=== PATIENT | male | born 1975 | race Caucasian/White ===

== ENCOUNTER 2017-06-18 10:40 | Inpatient (IN) | payer MEDICAID ==
--- NOTE | 2017-06-18 11:32 | EDPHY ---
H & P Stated Complaint: RIGHT FLANK PAIN Time Seen by Provider: 06/18/17 11:32 HPI/ROS: HPI: This is a 41-year-old male who presents with Chief Complaint: Right flank pain Location: Right flank/right lower quadrant Quality: Pain Duration: Starting this morning Signs and Symptoms: no fever, + nausea, no vomiting, no hematemesis, no blood in stool, no abdominal bloating, no diarrhea, no back pain, no urinary symptoms , no testicular/groin pain, no indigestion, no chest pain, no shortness of breath Timing: Acute Severity: 8 out of Context: Patient reports that he woke up this morning with right flank to right lower quadrant pain. Into the coffee shop and was talking to his friends he became concerned he may have a kidney stone or appendicitis. He reports mild nausea but no vomiting/fever/diarrhea/testicular groin pain. Drank coffee and ate hummus around 8:30 a.m. Denies any hematuria or history of kidney stones. Modifying Factors: He has tried nothing for the pain Comment: ROS: see HPI Constitutional: No fever, no chills, no weight loss Eyes: No blurred vision Respiratory: No shortness of breath, no cough Cardiovascular: No chest pain, no palpitations Gastrointestinal: + nausea, no vomiting, no diarrhea, no hematemesis, no blood in stool Genitourinary: No dysuria, no blood in urine Extremities: No myalgias, no edema Neurologic: No weakness, no numbness Skin: No rashes, no petechiae Hematologic: No bruising, no bleeding MEDICAL/SURGICAL/SOCIAL HISTORY: Medical history: Generally healthy. Does not take any regular medications. Surgical history: Knee arthroscopy Social history: Nonsmoker. . Owns a [employer] business. Family history noncontributory. CONSTITUTIONAL: awake and alert, no obvious distress HEENT: Atraumatic and normocephalic, PERRL, EOMI. Nares patent; no rhinorrhea; no nasal mucosal edema. Tympanic membranes clear. Hard of hearing. Oropharynx clear, no exudate and moist pink mucosa. Airway patent. No lymphadenopathy. No meningismus. Cardiovascular: Normal S1/S2, regular rate, regular rhythm, without murmur rub or gallop. PULMONARY/CHEST: Symmetrical and nontender. Clear to auscultation bilaterally. Good air movement. No accessory muscle usage. ABDOMEN: Soft, nondistended, right lower quadrant moderate tenderness, no rebound, + guarding, no peritoneal signs, no masses or organomegaly. No CVAT. EXTREMITIES: 2/2 pulses, strength 5/5, no deformities, no clubbing, no cyanosis or edema. NEUROLOGICAL: no focal neuro deficits. GCS 15. SKIN: Warm and dry, no erythema. no rash. Good capillary refill. Source: Patient Exam Limitations: No limitations - Personal History Current Tetanus/Diphtheria Vaccine: Yes Current Tetanus Diphtheria and Acellular Pertussis (TDAP): Yes Tetanus Vaccine Date: < 10 years - Medical/Surgical History Hx Asthma: No Hx Chronic Respiratory Disease: No Hx Diabetes: No Hx Cardiac Disease: No Hx Renal Disease: No Hx Cirrhosis: No Hx Alcoholism: No Hx HIV/AIDS: No Hx Splenectomy or Spleen Trauma: No Other PMH: Hard of hearing, right knee surgery - Social History Smoking Status: Never smoked Constitutional: Initial Vital Signs Temperature (C) 37.7 C 06/18/17 10:59 Heart Rate 78 06/18/17 10:59 Respiratory Rate 16 06/18/17 10:59 Blood Pressure 135/83 H 06/18/17 10:59 O2 Sat (%) 98 06/18/17 10:59 O2 Delivery Mode Room Air Allergies/Adverse Reactions: No Known Allergies Allergy (Unverified 07/13/09 13:51) Home Medications: Medication Instructions Recorded NK [No Known Home Meds] 06/18/17 Medical Decision Making - Diagnostics Imaging Results: Imaging Impressions Abdomen/Pelvis CT 06/18/17 11:46 Impression: CT findings of appendicitis. Marked surrounding inflammatory change and free fluid suggests it may be ruptured. No evidence for free intraperitoneal air. Results called and discussed with Yamini Farah PA-C on June 18, 2017 at 1223 hours. Attention: This CT examination is specifically designed to evaluate patients who are clinically suspected of having acute obstructive uropathy. This examination does not use radiographic contrast, and as such, provides only a limited evaluation of the abdomen, pelvis and retroperitoneum. If there is further clinical suspicion for pathological conditions other than obstructive uropathy, a complete CT evaluation of the abdomen and pelvis utilizing intravenous, oral, and rectal contrast should be considered. ED Course/Re-evaluation: Urinalysis, labs, IV fluids, IV medications, CT abdomen and pelvis scan ordered Given 2 L normal saline IV Zofran, IV Toradol 30 mg, IV Dilaudid 1215: Called by radiologist, Dr. Rosenberg, reported that patient has acute appendicitis with perforation. Appendix is measuring 15 mm and has free air and inflammatory changes. Labs reviewed; mild leukocytosis with left shift noted. Given patient IV ceftriaxone and Flagyl. NPO status. Last meal was 8:30 a.m. Approximately 4 hr ago. 1225: ED decision to consult General surgery. Spoke with Dr. Avila, who came to the emergency room and reviewed films via PACs. He kindly agrees to consult on patient and take to the OR. This patient was seen under the supervision of my secondary supervising physician. I evaluated care for this patient independently. Discussed this patient with Dr. Gaspar who did not see the patient. Differential Diagnosis: Flank pain including but not limited to musculoskeletal causes, kidney stone, pyelonephritis, shingles, and intra-abdominal causes such as diverticulitis and appendicitis. - Data Points Laboratory Results: Laboratory Results 06/18/17 11:39 06/18/17 11:39 06/18/17 06/18/17 06/18/17 11:39 11:39 11:39 WBC 11.20 10^3/uL H 10^3/uL (3.80-9.50) RBC 5.45 10^6/uL 10^6/uL (4.40-6.38) Hgb 16.3 g/dL g/dL (13.7-17.5) Hct 46.2 % % (40.0-51.0) MCV 84.8 fL fL (81.5-99.8) MCH 29.9 pg pg (27.9-34.1) MCHC 35.3 g/dL g/dL (32.4-36.7) RDW 11.9 % % (11.5-15.2) Plt Count 282 10^3/uL 10^3/uL (150-400) MPV 9.4 fL fL (8.7-11.7) Neut % (Auto) 79.3 % H % (39.3-74.2) Lymph % (Auto) 12.5 % L % (15.0-45.0) [place] % (Auto) 7.1 % % (4.5-13.0) Eos % (Auto) 0.3 % L % (0.6-7.6) Baso % (Auto) 0.4 % % (0.3-1.7) Nucleat RBC Rel Count 0.0 % % (0.0-0.2) Absolute Neuts (auto) 8.90 10^3/uL H 10^3/uL (1.70-6.50) Absolute Lymphs (auto) 1.40 10^3/uL 10^3/uL (1.00-3.00) Absolute Monos (auto) 0.79 10^3/uL 10^3/uL (0.30-0.80) Absolute Eos (auto) 0.03 10^3/uL 10^3/uL (0.03-0.40) Absolute Basos (auto) 0.04 10^3/uL 10^3/uL (0.02-0.10) Absolute Nucleated RBC 0.00 10^3/uL 10^3/uL (0-0.01) Immature Gran % 0.4 % % (0.0-1.1) Immature Gran # 0.04 10^3/uL 10^3/uL (0.00-0.10) Sodium 139 mEq/L mEq/L (135-145) Potassium 4.2 mEq/L mEq/L (3.5-5.2) Chloride 103 mEq/L mEq/L (97-110) Carbon Dioxide 22 mEq/l mEq/l (22-31) Anion Gap 14 mEq/L mEq/L (8-16) BUN 21 mg/dL mg/dL (7-23) Creatinine 0.8 mg/dL mg/dL (0.7-1.3) Estimated GFR > 60 Glucose 105 mg/dL H mg/dL (70-100) Calcium 9.7 mg/dL mg/dL (8.5-10.4) Total Bilirubin 0.8 mg/dL mg/dL (0.1-1.4) Conjugated Bilirubin 0.5 mg/dL mg/dL (0.0-0.5) Unconjugated Bilirubin 0.3 mg/dL mg/dL (0.0-1.1) AST 26 IU/L IU/L (17-59) ALT 55 IU/L IU/L (21-72) Alkaline Phosphatase 68 IU/L IU/L (38-126) Total Protein 7.7 g/dL g/dL (6.3-8.2) Albumin 4.6 g/dL g/dL (3.5-5.0) Lipase 64 IU/L IU/L (23-300) Urine Color YELLOW Urine Appearance CLEAR Urine pH 5.0 (5.0-7.5) Ur Specific [place] 1.023 (1.002-1.030) Urine Protein NEGATIVE (NEGATIVE) Urine Ketones NEGATIVE (NEGATIVE) Urine Blood NEGATIVE (NEGATIVE) Urine Nitrate NEGATIVE (NEGATIVE) Urine Bilirubin NEGATIVE (NEGATIVE) Urine Urobilinogen NEGATIVE EU EU (0.2-1.0) Ur Leukocyte Esterase NEGATIVE (NEGATIVE) Urine Glucose NEGATIVE (NEGATIVE) Medications Given: Sodium Chloride (Ns) 1,000 mls @ 0 mls/hr IV ONCE ONE; Wide Open PRN Reason: Protocol Stop: 06/18/17 13:50 Last Admin: 06/18/17 13:51 Dose: 1,000 mls Discontinued Medications Hydromorphone HCl (Dilaudid) 1 mg IVP EDNOW ONE Stop: 06/18/17 12:25 Last Admin: 06/18/17 12:49 Dose: 1 mg Sodium Chloride (Ns) 1,000 mls @ 0 mls/hr IV ONCE ONE; Wide Open PRN Reason: Protocol Stop: 06/18/17 11:47 Last Admin: 06/18/17 11:57 Dose: 1,000 mls Ceftriaxone Sodium 2 gm/ (Sterile Water) 20 mls @ 300 mls/hr IV EDNOW ONE PRN Reason: Protocol Stop: 06/18/17 12:26 Last Admin: 06/18/17 13:22 Dose: 20 mls Metronidazole/Sodium Chloride (Flagyl 500 Mg (Premix)) 100 mls @ 100 mls/hr IV EDNOW ONE PRN Reason: Protocol Stop: 06/18/17 13:22 Last Admin: 06/18/17 12:50 Dose: 100 mls Ketorolac Tromethamine (Toradol) 30 mg IVP EDNOW ONE Stop: 06/18/17 11:47 Last Admin: 06/18/17 11:56 Dose: 30 mg Ondansetron HCl (Zofran) 4 mg IVP EDNOW ONE Stop: 06/18/17 13:50 Last Admin: 06/18/17 13:50 Dose: 4 mg Departure - Departure Disposition: [facility] Acute Clinical Impression: Appendicitis, acute, with peritonitis Condition: Fair
[2017-06-18] MEDS ORDERED: NS 1,000 ML IV ONE ×3 (11:46→13:53)
[2017-06-18] MEDS ORDERED: KETOROLAC 30 MG/1 ML SDV IVP ONE (11:46)
[2017-06-18 11:51] LABS: PLATELET COUNT 282 10^3/uL (150-400)
[2017-06-18] MEDS ORDERED: cefTRIAXone 2 GM in STERILE WATER INJ 20 ML IV ONE (12:23)
[2017-06-18] MEDS ORDERED: HYDROmorphONE/DILAUDID 2 MG/ML INJ IVP ONE (12:24)
--- NOTE | 2017-06-18 12:51 | PDGENHP ---
History and Physical History and Physical: h and p cc: rlq pain. 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 access: appendicitis plan: appendctomy, laparoscopic or open.
[2017-06-18] MEDS ORDERED: ONDANSETRON 4 MG/2 ML VIAL ONE (13:47)
[2017-06-18] MEDS ORDERED: ONDANSETRON 4 MG/2 ML VIAL IVP ONE ×2 (13:49→13:53)
[2017-06-18] MEDS ORDERED: MIDAZOLAM 2 MG/2 ML VIAL IVP ONE (14:52)
--- NOTE | 2017-06-18 14:52 | PDANEPAE ---
ANE History of Present Illness 41 yo for lap appy MARCIAL Past Medical History - Cardiovascular History Hx Hypertension: No Hx Arrhythmias: No Hx Chest Pain: No Hx Coronary Artery / Peripheral Vascular Disease: No Hx CHF / Valvular Disease: No Hx Palpitations: No - Pulmonary History Hx COPD: No Hx Asthma/Reactive Airway Disease: No Hx Oxygen in Use at Home: No Hx Sleep Apnea: No - Endocrine History Hx Diabetes: No ANE Review of Systems Review of Systems: - Exercise capacity METS (RN): 5 METS ANE Patient History - Allergies Allergies/Adverse Reactions: No Known Allergies Allergy (Unverified 07/13/09 13:51) - Home Medications Home medications: home medication list seen and reviewed Home Medications: NK [No Known Home Meds] 06/18/17 [Last Taken Unknown] - NPO status NPO Since - Liquids (Date): 06/18/17 NPO Since - Liquids (Time): 08:00 NPO Since - Solids (Date): 06/18/17 NPO Since - Solids (Time): 08:00 - Anes Hx Anes Hx: no prior problems - Smoking Hx Smoking Status: Never smoked ANE Labs/Vital Signs - Labs Result Diagrams: 06/18/17 11:39 06/18/17 11:39 - Vital Signs Blood Pressure: 108/66 Heart Rate: 64 Respiratory Rate: 16 O2 Sat (%): 97 Height: 5 ft 9 in Weight: 74.843 kg ANE Physical Exam - Airway Neck exam: FROM Mallampati Score: Class 2 Mouth exam: normal dental/mouth exam - Pulmonary Pulmonary: no respiratory distress - Cardiovascular Cardiovascular: regular rate and rhythym - ASA Status ASA Status: II ANE Anesthesia Plan Anesthesia Plan: general endotracheal anesthesia
[2017-06-18] MEDS ORDERED: BUPIVACAINE/EPI 0.5% 30 ML SDV ONE (14:56)
[2017-06-18] MEDS ORDERED: fentaNYL 250 MCG/5 ML INJ ONE (14:59)
[2017-06-18] MEDS ORDERED: PROPOFOL/EMULSION 500 MG/50 ML BOTTLE IV ONE (14:59)
[2017-06-18] MEDS ORDERED: MIDAZOLAM 2 MG/2 ML VIAL ONE (15:12)
[2017-06-18] MEDS ORDERED: fentaNYL 100 MCG/2 ML INJ IVP PRN (16:08)
[2017-06-18] MEDS ORDERED: HYDROmorphONE/DILAUDID 2 MG/ML INJ IVP PRN (16:08)
[2017-06-18] MEDS ORDERED: NALOXONE HCL 0.4 MG/ML INJ IVP PRN (16:08)
[2017-06-18] MEDS ORDERED: ONDANSETRON 4 MG/2 ML VIAL IVP PRN ×2 (16:08→16:27)
--- NOTE | 2017-06-18 16:24 | POSTOPPROG ---
Post Op Note Date of Operation: 06/18/17 Surgeon: Sanket Avila Pre-op Diagnosis: appendicitis Post-op Diagnosis: ruptured appendix Indication: appendicitis Procedure: lap appendectomy for contained ruptured appendix with localized abscess Findings: abscess at tip of appendix Inf/Abcess present in the surg proc area at time of surgery?: Yes Depth: Organ Space EBL: Minimal
--- NOTE | 2017-06-18 16:33 | POSTANESTH ---
Post Anesthetic Evaluation Cardiovascular Status: Tx Over/Under Hydration Respiratory Status: Normal, Stable Level of Consciousness/Mental Status: Can Participate in Eval Pain Control: Adequate, Prn Tx Ordered Nausea/Vomiting Control: Adequate, Prn Tx Ordered Complications Possibly Related to Anesthesia: None Noted
--- NOTE | 2017-06-18 16:53 | PDMN ---
Medical Necessity Medical necessity: C/M review: est. > 2 MN LOS for eval and TX of acute ruptured appendicitis requiring emergent 06/18/2017 surgery - laparoscopic appendectomy - finding: contained ruptured appendix with local ized abscess at the tip of appendix and ongoing postop IV Ceftriaxone, IV Flagyl, pain management per surgery postop report.
--- NOTE | 2017-06-18 17:29 | GOP ---
[f rep st] OPERATIVE REPORT DATE OF OPERATION: SURGEON: Sanket Avila MD PREOPERATIVE DIAGNOSIS: Acute appendicitis. POSTOPERATIVE DIAGNOSIS: Contained ruptured appendicitis. PROCEDURE PERFORMED: Laparoscopic appendectomy for a ruptured appendicitis. FINDINGS: INDICATIONS: Patient is a 41-year-old male with right lower quadrant pain. CT documented inflammato ry mass around the cecum. DESCRIPTION OF PROCEDURE: General anesthetic. The abdomen scrubbed with ChloraPrep, draped in the u sual sterile fashion. Patient had a small umbilical hernia, so a transverse incision was made throug h this area and a 10 mm trocar directly placed through the hernia defect. There was small amount of free fluid in the pelvis. The appendix was retrocecal and bound down in the gutter. The appendix wa s amputated flush on the cecum with an Endo-GEMMA 30 blue cartridge and then removed retrograde followi ng the tip fairly cephalad right up to the liver where it was dissected away from the inflammatory fi brosis in the retroperitoneum. Some pus was encountered near the tip of the appendix consistent with the contained abscess. This was aspirated. All bleeding was controlled. The wound was irrigated w ith saline. The appendix placed in an Endopouch and extracted. The fascial defect at the umbilical hernia site was closed with a row of transverse interrupted 0 Nurolon sutures. The skin was closed w ith 4-0 Vicryl and Dermabond. Patient tolerated the procedure well. /[id number]/MODL
[2017-06-18] MEDS: LR 1,000 ML IV SCH (18:08)
[2017-06-19] MEDS: LR 1,000 ML IV SCH (05:33)
--- NOTE | 2017-06-19 06:53 | SOAPPROG ---
SOAP Progress Note Assessment/Plan: Assessment: Plan: 06/19/17 06:52 doing well pod 1 ruptured contained appy with localized abscess plan check cbc tomorrow, possibly dc tomorro or tuesday Subjective: feels better Objective: Vital Signs Temp Pulse Resp BP Pulse Ox 36.7 C 92 18 120/80 95 06/19/17 04:33 06/19/17 04:33 06/19/17 04:33 06/19/17 04:33 06/19/17 04:33 06/18/17 06/19/17 06/20/17 05:59 05:59 05:59 Intake Total 4400 Output Total 520 Balance 3880 ICD10 Worksheet Patient Problems: Problems Problem Status Onset Appendicitis, acute, with peritonitis Acute
--- NOTE | 2017-06-19 09:59 | ASMTCMCOM ---
CM Note CM Note Notes: Patient admitted for ruptured appendix repair. This was done by Dr Beal yesterday, and patient is stable. Anticipate d/c in 1-2 days. Patient is normally independent and will not have any d/c needs. Case Management available if this changes. Date Signed: 06/19/2017 09:58 AM Electronically Signed By:Lili Morgan RN
[2017-06-19] MEDS: HYDROCODONE/APAP 5/325 TAB PO PRN ×2 (12:35→20:05)
[2017-06-20 08:04] VITALS: BP 102/71
--- NOTE | 2017-06-20 08:45 | GDS ---
[f rep st] DISCHARGE SUMMARY PRESENT ILLNESS: Patient was admitted with acute appendicitis with focal contained rupture and a sma ll amount of pus in that area. He has been afebrile since surgery. Given the minimal contamination, it is felt he has had sufficient antibiotics. DISPOSITION: Home. Follow up with Dr. Avila in 1 week. /[id number]/MODL
== END 2017-06-20 12:51 | disposition home or self-care (01) | DRG 233 ==
LOC: F3N 17:14
PROVIDERS: ADMIT Surgery; ATTEND Surgery
PROC: 0DTJ4ZZ Resection of Appendix, Percutaneous Endoscopic Approach (ICD-10-PCS; principal; 2017-06-18 15:30)
PROC: 3E03329 Introduction of Other Anti-infective into Peripheral Vein, Percutaneous Approach (ICD-10-PCS; principal; 2017-06-18 15:30)
DX: K35.3 Acute appendicitis with localized peritonitis (principal)
CPT/HCPCS: 96365; J0696; J1170; J1885; J2250; J2405; J2704; J3010